=== PATIENT | female | born 1950 | race Caucasian/White ===

== ENCOUNTER → 2023-08-02 08:13 | Outpatient (REF) | payer MEDICARE, OTHER, SELFPAY | LOC: MRI 3T 08:13 | PROVIDERS: ATTENDING PHYSICIAN Orthopaedic Surgery; FAMILY PHYSICIAN Family Medicine | DX: M25.561 Pain in right knee (principal) | CPT/HCPCS: 73721 ==

== ENCOUNTER → 2023-12-03 07:38 | Outpatient (REF) | payer MEDICARE, OTHER, SELFPAY ==
[2023-12-03 10:00] LABS: % Basophils 0.8 % (0-2); % Eosinophils 2.2 % (0-6); % Immature Granulocytes 0.2 % (0-0.5); % Lymphocytes 34.3 % (20.5-51.1); % Monocytes 8.2 % (1.7-9.3); % Neutrophils 54.3 % (42.2-75.2); Absolute Basophils 0.1 10^3/uL (0-0.2); Absolute Eosinophils 0.1 10^3/uL (0-0.7); Absolute Lymphocytes 2.1 10^3/uL (1.2-3.4); Absolute Monocytes 0.5 10^3/uL (0.1-0.6); Absolute Neutrophils 3.3 10^3/uL (1.4-6.5); Hematocrit 41.1 % (37.0-47.0); Mean Corp Hgb Conc. 34.1 g/dL (33.0-37.0); Mean Corpuscular Volume 93.8 fL (81.0-99.0); Mean Platelet Volume 10.8 fL (7.4-10.4); Nucleated Red Blood Cells % 0 %; Platelet Count 229 10^3/uL (130-400); Red Blood Cell Count 4.38 10^6/uL (4.20-5.40); Red Cell Dist. Width 13.3 % (11.5-14.5)
[2023-12-03 10:23] LABS: Glycohemoglobin (HgbA1c) 5.5 % (4.0-5.6)
[2023-12-03 10:33] LABS: ALT (SGPT) 27 U/L (0-35); AST (SGOT) 29 U/L (14-36); Albumin 4.6 g/dl (3.5-5.0); Alkaline Phosphatase 57 U/L (38-126); Blood Urea Nitrogen 18 mg/dl (7-17); Calcium 9.9 mg/dl (8.4-10.2); Carbon Dioxide 29 mmol/L (22-30); Chloride 101 mmol/L (98-107); Glucose 109 mg/dl (70-99); HDL Cholesterol 85 mg/dl; LDL Cholesterol, Calculated 129 mg/dl; Potassium 4.3 mmol/L (3.5-5.1); Sodium 139 mmol/L (135-145); Total Cholesterol 237 mg/dl (50-199); Total Protein 6.8 g/dl (6.3-8.2); Triglyceride 115 mg/dl (10-149); Very Low Density Lipoprotein 23 mg/dl (0-30); eGFR > 60.00
== END ==
LOC: HWLAB 07:38
PROVIDERS: ATTENDING PHYSICIAN Orthopaedic Surgery; FAMILY PHYSICIAN Family Medicine
DX: Z01.818 Encounter for other preprocedural examination (principal); E78.00 Pure hypercholesterolemia, unspecified; R73.01 Impaired fasting glucose
CPT/HCPCS: 36415; 80053; 80061; 83036; 85025

== ENCOUNTER → 2023-12-18 14:15 | Outpatient (REF) | payer MEDICARE, OTHER, SELFPAY | LOC: WDC 14:15 | PROVIDERS: ATTENDING PHYSICIAN Family Medicine | DX: N64.4 Mastodynia (principal) | CPT/HCPCS: 76642 ==

== ENCOUNTER 2023-12-31 15:33 | Emergency (ER) | payer MEDICARE, OTHER, SELFPAY ==
[2023-12-31 15:38] VITALS: BP 127/66
[2023-12-31 15:40] VITALS: BP 127/66
[2023-12-31 16:00] VITALS: BP 113/60
[2023-12-31] MEDS: TYLENOL 1000 MG PO (16:39)
--- NOTE | 2023-12-31 16:41 | ED.GENMED ---
History of Present Illness
General
Chief Complaint: Cardiac Symptoms
Source: patient and records
Exam Limitations: none
Time Seen by Provider: 12/31/23 16:19
Nursing documentation reviewed up to this point in time: agreed with
History of Present Illness
History of Present Illness:
73-year-old female from outpatient surgery center she underwent a right total knee replacement with Dr. Stock apparently in the recovery room during the case developed some ST depressions on the monitor which are new from her preop EKG she has no
chest pain no shortness of breath no fever no chills does have some pain in her right knee at the surgical site requesting her scheduled dose of analgesics, she is anxious for discharge, though she will stay for some testing, she had preop testing
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
Past History
Past History
ED Past Medical History: GERD and HTN; Negative CAD
ED Past Surgical History: Orthopedic
Social History
Tobacco: Non-smoker
Alcohol: None
Drug: None
Personal:
Living: with family
Employment: Retired
Review of Systems
Review of Systems
All Other Systems: ROS reviewed and negative except as documented in HPI and ROS
Constitutional: Denies fever
EENT: Reports no symptoms
Respiratory: Reports no symptoms; Denies trouble breathing
Cardiac: Reports no symptoms; Denies chest pain or syncope
ABD/GI: Reports no symptoms
Musculoskeletal: Reports joint pain
Neurological: Reports no symptoms
Phy Exam
Physical Exam
Physical Exam:
Physical Exam
General: no apparent distress, not acutely ill
Neck: No jaundice
Heart: s1/s2 regular rate and rhythm, no murmur. equal radial pulses.
Lungs: no acute respiratory distress. clear bilaterally
Abdomen: Not
Neuro: alert and oriented. no focal neurological deficits
Skin: no rash
Psychiatric: well kept. interactive and cooperative
Extremities: No calf pain bilaterally surgical dressing not removed from the right knee
Course
Orders/Labs/Results
Orders:
Orders
12/31/23 15:37
Electrocardiogram (*1) Urgent
Reason for Study: Abnormal EKG
12/31/23 15:38
EKG- Treatment ONCE
12/31/23 16:31
Acetaminophen [Tylenol] 1,000 mg PO NOW STA
12/31/23 16:33
Acetaminophen [Tylenol] 1,000 mg .ROUTE .STK-MED ONE
12/31/23 16:47
Complete Blood Count/With Diff Urgent
Comprehensive Metabolic Panel Urgent
Magnesium Urgent
Troponin I Urgent
12/31/23 17:56
Ondansetron Injectable [Zofran] 4 mg IV NOW STA
Oxycodone [Roxicodone] 5 mg PO NOW STA
Abnormal Lab Results
12/31/23
16:47
RBC 4.01 L 10^6/uL
(4.20-5.40)
Hct 35.5 L %
(37.0-47.0)
MPV 10.7 H fL
(7.4-10.4)
Absolute Neuts (auto) 8.7 H 10^3/uL
(1.4-6.5)
Absolute Lymphs (auto) 0.4 L 10^3/uL
(1.2-3.4)
Neutrophils % 94.4 H %
(42.2-75.2)
Lymphocytes % 4.1 L %
(20.5-51.1)
Monocytes % 0.8 L %
(1.7-9.3)
Carbon Dioxide 21 L mmol/L
(22-30)
Creatinine 0.5 L mg/dL
(0.6-1.0)
Glucose 138 H mg/dl
(70-99)
12/31/23 16:47
12/31/23 16:47
Vital Signs
Initial and Last Documented VS:
Initial Vital Signs
Pulse Resp BP Pulse Ox
89 14 127/66 96
12/31/23 15:38 12/31/23 15:38 12/31/23 15:38 12/31/23 15:38
Last Documented Vital Signs
Temp Pulse Resp BP Pulse Ox
98.6 F 59 14 113/60 98
12/31/23 15:40 12/31/23 17:45 12/31/23 17:45 12/31/23 16:00 12/31/23 17:45
MDM/Problems Addressed
Differential Diagnosis Includes:
Nonspecific EKG changes, doubt PE by history or physical doubt ACS by history physical, conceivably electrolyte abnormalities or arrhythmia
MDM/Problems Addressed:
Incomplete bundle branch block,
Chronic conditions affecting care: HTN
Acute Exacerbation and/or Progression of Chronic Illness: HTN
*Pulse Oximetry
Patient hypoxic: no
*EKG
Interpreted by ED Provider?: Yes
Interpretation: abnormal
Comparison EKG: changes noted
Heart Rate: 78
Rate: normal
Rhythm: sinus
QRS Pattern: right bundle branch block
Ischemia: non-specific ST changes
*Fur Cleaner Interpretation
Rate: normal
Interpretation: normal
Heart Rate: 78
Rhythm: sinus
*Critical Care Note
Total Time (30-74mins, 75-104mins- exclusive of procedures): Not Applicable
Data Reviewed
Review of Other/Old Records Reveals: Records and Progress Notes
Source: patient and records
Update Note
Update Note:
Update, patient is asymptomatic clear mental status, denies any chest pain or shortness of breath, she is requesting be discharged I did speak with her at length I did review notes from the surgery center preop EKG, looks that she has a new complete
right bundle branch block, no chest pain or shortness of breath no convincing evidence that this would be an acute PE will check electrolytes and troponin, keep her on the cardiac specialist she is in agreement to stay until her labs are returned the
meantime we will start her on her scheduled analgesic regimen which she would like to stick with
Update, patient feeling well she mentioned that visiting nurses may not build to see her tonight that she may need to be admitted for pain control, reviewed with orthopedist and hospitalist consensus is no indication for admission assuming she is
able to ambulate with her walker which she has with her and I concur that she has a undetectable troponin no chest pain or shortness of breath nonspecific EKG changes reviewed with patient and her spouse they live about 10 minutes away from the
hospital
ED Attending Note
-
Portions of this chart may have been created with voice recognition software.� Occasional wrong word or��sound alike� substitutions may have occurred due to the inherent limitations of voice recognition software.
Discharge Plan
Departure
Patient Disposition: Home (Routine Discharge)
Date of Disposition: 12/31/23
Time of Disposition: 18:20
Patient with high blood pressure during this ER visit?: No
Condition: Good
Covid-19: Negative COVID-19
Discharge Problem:
Post-operative pain
Referrals:
Yuko Quiles, DO [Family Provider] - Next open appointment
Activity Restrictions/Additional Instructions:
Follow-up with your primary care provider and orthopedist
Take medications as prescribed
Interventions
Interventions:
ED- Fall Risk Assessment Last Done: 12/31/23 15:48
ED- Pulmonary Assessment Last Done: 12/31/23 15:48
ED- Cardiac Assessment Last Done: 12/31/23 15:48
Discharge Date and Time
Print Language: EGYPTIAN
[2023-12-31 16:54] VITALS: BMI 22.4
[2023-12-31 16:54] LABS: % Basophils 0.3 % (0-2); % Immature Granulocytes 0.4 % (0-0.5); % Lymphocytes 4.1 % (20.5-51.1); % Monocytes 0.8 % (1.7-9.3); % Neutrophils 94.4 % (42.2-75.2); Absolute Lymphocytes 0.4 10^3/uL (1.2-3.4); Absolute Monocytes 0.1 10^3/uL (0.1-0.6); Absolute Neutrophils 8.7 10^3/uL (1.4-6.5); Hematocrit 35.5 % (37.0-47.0); Hemoglobin 12.4 g/dL (12.0-16.0); Mean Corp Hgb Conc. 34.9 g/dL (33.0-37.0); Mean Corpuscular Hgb 30.9 pg (27.0-31.0); Mean Corpuscular Volume 88.5 fL (81.0-99.0); Mean Platelet Volume 10.7 fL (7.4-10.4); Nucleated Red Blood Cells % 0 %; Platelet Count 223 10^3/uL (130-400); Red Blood Cell Count 4.01 10^6/uL (4.20-5.40); White Blood Cell Count 9.2 10^3/uL (4.8-10.8)
[2023-12-31 17:19] LABS: Troponin I < 0.012 ng/ml
[2023-12-31 17:31] LABS: ALT (SGPT) 28 U/L (0-35); AST (SGOT) 33 U/L (14-36); Albumin 4.3 g/dl (3.5-5.0); Alkaline Phosphatase 49 U/L (38-126); Blood Urea Nitrogen 15 mg/dl (7-17); Calcium 9.1 mg/dl (8.4-10.2); Carbon Dioxide 21 mmol/L (22-30); Chloride 105 mmol/L (98-107); Estimated Creatinine Clearance 71 ml/min; Glucose 138 mg/dl (70-99); Magnesium 2.1 mg/dl (1.6-2.3); Potassium 3.9 mmol/L (3.5-5.1); Sodium 140 mmol/L (135-145); Total Bilirubin 0.5 mg/dl (0.2-1.3); Total Protein 6.4 g/dl (6.3-8.2); eGFR > 60.00
[2023-12-31] MEDS: ZOFRAN 4 MG IV (17:59)
[2023-12-31 18:00] VITALS: BP 103/54
[2023-12-31] MEDS: ROXICODONE 5 MG PO (18:00)
== END 2023-12-31 19:30 | disposition home or self-care (01) ==
LOC: EMR 15:33
PROVIDERS: EMERGENCY PHYSICIAN Emergency Medicine; FAMILY PHYSICIAN Family Medicine
DX: G89.18 Other acute postprocedural pain (principal); M25.561 Pain in right knee; I10 Essential (primary) hypertension; Z96.651 Presence of right artificial knee joint; K21.9 Gastro-esophageal reflux disease without esophagitis
CPT/HCPCS: 99284; 96374; 80053; 83735; 84484; 85025; 93005

== ENCOUNTER → 2024-09-23 11:59 | Outpatient (REF) | payer MEDICARE, OTHER, SELFPAY ==
[2024-09-23 15:42] LABS: Hematocrit 40.9 % (37.0-47.0); Hemoglobin 13.7 g/dL (12.0-16.0); Mean Corp Hgb Conc. 33.5 g/dL (33.0-37.0); Mean Corpuscular Volume 94.5 fL (81.0-99.0); Nucleated Red Blood Cells % 0 %; Platelet Count 257 10^3/uL (130-400); Red Cell Dist. Width 13.4 % (11.5-14.5)
[2024-09-23 15:49] LABS: ALT (SGPT) 19 U/L (0-35); AST (SGOT) 22 U/L (14-36); Albumin 4.8 g/dl (3.5-5.0); Alkaline Phosphatase 59 U/L (38-126); Blood Urea Nitrogen 16 mg/dl (7-17); Calcium 9.6 mg/dl (8.4-10.2); Carbon Dioxide 28 mmol/L (22-30); Chloride 104 mmol/L (98-107); Glucose 106 mg/dl (70-99); HDL Cholesterol 93 mg/dl; LDL Cholesterol, Calculated 141 mg/dl; Potassium 4.2 mmol/L (3.5-5.1); Sodium 137 mmol/L (135-145); Total Protein 7.1 g/dl (6.3-8.2); Very Low Density Lipoprotein 14 mg/dl (0-30); eGFR > 60.00
== END ==
LOC: HWRAD 11:59
PROVIDERS: ATTENDING PHYSICIAN Internal Medicine; FAMILY PHYSICIAN Family Medicine
DX: R19.04 Left lower quadrant abdominal swelling, mass and lump (principal); Z00.00 Encounter for general adult medical examination without abnormal findings; E78.00 Pure hypercholesterolemia, unspecified; R73.01 Impaired fasting glucose; R22.42 Localized swelling, mass and lump, left lower limb
CPT/HCPCS: 36415; 76882; 80053; 80061; 85025

== ENCOUNTER → 2024-11-01 14:40 | Outpatient (REF) | payer MEDICARE, OTHER, SELFPAY | LOC: HWWDC 14:40 | PROVIDERS: ATTENDING PHYSICIAN Family Medicine | DX: Z12.31 Encounter for screening mammogram for malignant neoplasm of breast (principal) | CPT/HCPCS: 77063; 77067 ==

== ENCOUNTER → 2024-12-26 07:59 | Outpatient (REF) | payer MEDICARE, OTHER, SELFPAY ==
[2024-12-26 08:45] LABS: Hematocrit 40.3 % (37.0-47.0); Hemoglobin 13.5 g/dL (12.0-16.0); Mean Corp Hgb Conc. 33.5 g/dL (33.0-37.0); Mean Corpuscular Volume 93.7 fL (81.0-99.0); Platelet Count 239 10^3/uL (130-400); Red Cell Dist. Width 13.5 % (11.5-14.5)
[2024-12-26 09:27] LABS: Blood Urea Nitrogen 13 mg/dl (7-17); Calcium 9.5 mg/dl (8.4-10.2); Carbon Dioxide 27 mmol/L (22-30); Chloride 105 mmol/L (98-107); Glucose 101 mg/dl (70-99); Potassium 4.7 mmol/L (3.5-5.1); Sodium 138 mmol/L (135-145); eGFR > 60.00
== END ==
LOC: SDSPAT 07:59
PROVIDERS: ATTENDING PHYSICIAN Surgery; FAMILY PHYSICIAN Family Medicine
DX: Z01.818 Encounter for other preprocedural examination (principal)
CPT/HCPCS: 36415; 80048; 85027; 93005

== ENCOUNTER 2025-01-06 06:01 | Day surgery (SDC) | payer MEDICARE, OTHER, SELFPAY ==
[2024-12-26 11:22] VITALS: BMI 20.5
--- NOTE | 2024-12-28 07:34 | PTCARENOTE ---
Patients 12/26 ECG abnormal- reviewed by Dr. East- no additional interventions required
[2025-01-06] VITALS (8 sets, daily range): BP systolic 102–127; BP diastolic 41–72; BMI 20.5
[2025-01-06] MEDS: TYLENOL 1000 MG PO (07:03)
[2025-01-06] MEDS: NORMOSOL-R/PLASMALYTE-A 1000 IV (07:03)
[2025-01-06] MEDS: DILAUDID 0.25 MG IV (09:20)
[2025-01-06] MEDS: MOTRIN 600 MG PO (10:30)
[2025-01-06] MEDS: ZOFRAN 4 MG IV (11:20)
== END 2025-01-06 11:37 | disposition home or self-care (01) ==
LOC: SDS 06:01
PROVIDERS: ATTENDING PHYSICIAN Surgery; FAMILY PHYSICIAN Family Medicine
DX: K41.90 Unilateral femoral hernia, without obstruction or gangrene, not specified as recurrent (principal)
CPT/HCPCS: 49550; C1781